=== PATIENT | female | born 1965 | race Two or more races ===

== ENCOUNTER 2019-06-05 21:03 | Emergency (ER) | payer BC ==
[~2019-06-05] VITALS: Ht 170.2 cm; Wt 74.4 kg
--- NOTE | 2019-06-05 23:10 | NUR ---
pt to room from lobby
--- NOTE | 2019-06-05 23:17 | NUR ---
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
--- NOTE | 2019-06-05 23:51 | NUR ---
DR. ROQUE AT BEDSIDE EVALUATING PT
[2019-06-06] MEDS ORDERED: PROCHLORPERAZINE 5 MG/ML, 2ML IVPush ONE
[2019-06-06] MEDS ORDERED: OXYcodone/APAP 10/325MG TABLET PO ONE
[2019-06-06] MEDS ORDERED: ACETAMINOPHEN 325 MG TABLET PO ONE
[2019-06-06] MEDS ORDERED: DIPHENHYDRAMINE 25 MG CAPSULE PO ONE
[2019-06-06] MEDS ORDERED: OXYcodone/APAP 10/325MG TABLET ONE (00:14)
[2019-06-06] MEDS ORDERED: ACETAMINOPHEN 325 MG TABLET ONE (00:14)
[2019-06-06] MEDS ORDERED: PROCHLORPERAZINE 5 MG/ML, 2ML ONE (00:14)
[2019-06-06] MEDS ORDERED: DIPHENHYDRAMINE 25 MG CAPSULE ONE (00:14)
--- NOTE | 2019-06-06 00:43 | NUR ---
IV ESTABLISHED AND LABS DRAWN, SENT TO LAB
[2019-06-06 01:36] LABS: BASOPHILS # (AUTO) 0.03 x10^3/uL (0-0.1); BASOPHILS % (AUTO) 0 % (0-1); EOSINOPHILS # (AUTO) 0.05 x10^3/uL (0-0.4); EOSINOPHILS % (AUTO) 1 % (1-7); LYMPHOCYTES # (AUTO) 2.41 x10^3/uL (1-3.4); LYMPHOCYTES % (AUTO) 29 % (22-44); MD NO; MEAN CORPUSCULAR HEMOGLOBIN 28.5 pg (27.0-34.8); MEAN CORPUSCULAR HGB CONC 32.3 g/dL (32.4-35.8); MEAN CORPUSCULAR VOLUME 88.3 fL (80-100); MEAN PLATELET VOLUME 9.3 fL (7.4-10.4); MONOCYTES # (AUTO) 0.58 x10^3/uL (0.2-0.8); MONOCYTES % (AUTO) 7 % (2-9); NEUTROPHILS # (AUTO) 5.33 x10^3/uL (1.8-6.8); NEUTROPHILS % (AUTO) 63 % (42-75); PLATELET COUNT 261 x10^3/uL (130-400); RED BLOOD COUNT 4.25 x10^6/uL (3.82-5.3); RED CELL DISTRIBUTION WIDTH 15.3 % (9.6-15.2)
[2019-06-06 01:37] LABS: ALANINE AMINOTRANSFERASE 28 U/L (12-78); ALBUMIN 3.3 g/dL (3.4-5.0); ANION GAP 4 mmol/L (5-15); CALCIUM 8.8 mg/dL (8.5-10.1); CHLORIDE 109 mmol/L (98-107); CREATININE 0.67 mg/dL (0.55-1.02)
--- NOTE | 2019-06-06 01:39 | NUR ---
PT INTO HALLWAY STATING SHE WANTS TO LEAVE. PT WANTS TO GET UNDRESSED AND LEAVE. PT UPSET ABOUT HER HAVING TO HAVE BROUGHT HER FOOD. POC DISCUSSED. PT AWARE LABS ARE STILL PENDING. THIS WAS DISCUSSED WITH . PT SIGNED AMA FORM.
[2019-06-06 01:40] VITALS: BP 155/88
[2019-06-06 01:42] LABS: ALKALINE PHOSPHATASE 146 U/L (45-117); BILIRUBIN,TOTAL 0.3 mg/dL (0.2-1.0); TOTAL PROTEIN 6.5 g/dL (6.4-8.2); TROPONIN I < 0.015 ng/mL (0.000-0.045)
== END 2019-06-06 01:44 | disposition home or self-care (01) ==
LOC: ED 06-06 01:30
DX: R51 Headache (principal); R07.9 Chest pain, unspecified; R06.02 Shortness of breath; I10 Essential (primary) hypertension; I25.2 Old myocardial infarction; Z86.73 Personal history of transient ischemic attack (TIA), and cerebral infarction without residual deficits
CPT/HCPCS: 36415; 70450; 71046; 80053; 84484; 85025; 93005; 96374; 99284; J0780; Q0163